=== PATIENT | female | born 1975 | race Caucasian/White ===

== ENCOUNTER 2017-04-15 20:20 | Emergency (ER) | payer MEDICAID ==
[2017-04-15 20:25] VITALS: TEMP 98.6; O2SAT 96
[2017-04-15] MEDS ORDERED: PROMETHAZINE HCL 25 MG/ML INJ IVP ONE (20:59)
[2017-04-15] MEDS ORDERED: NS 1,000 ML IV ONE (20:59)
[2017-04-15] MEDS ORDERED: FAMOTIDINE 20 MG/NACL 50 ML IV ONE (20:59)
--- NOTE | 2017-04-15 20:59 | EDPHY ---
H & P Stated Complaint: RIGHT UPPER ABD PAIN PAST 3 DAYS , HX OF GALLBLADDER Time Seen by Provider: 04/15/17 20:58 HPI/ROS: HPI: This is a 42 female who presents with Chief Complaint: RIGHT UPPER ABD PAIN PAST 3 DAYS , HX OF GALLBLADDER Location: Right upper quadrant Quality: Pain Duration: 2 weeks Signs and Symptoms: no fever, + nausea, no vomiting, no hematemesis, no blood in stool, no abdominal bloating, no diarrhea, no back pain, no urinary symptoms , no vaginal bleeding/discharge, no indigestion, no chest pain, no shortness of breath Timing: Sudden, intermittent episodes Severity: [id number] Context: Patient is generally healthy presents with complaints of right upper quadrant pain over the last 2 weeks that have occurred twice today lasting approximate 30 min at a time and self resolves when she sits and rests and breathes deeply. Patient reports that she ate some fresh bread prior to the symptoms starting. Denies the pain being related to breathing patterns/ positions. Patient does have a IUD and smokes cigarettes intermittently. Denies recent long distance travel/left extremity swelling. Patient denies fever /cough/chest pain/shortness of breath. She denies any food intolerance to spicy or fried foods. Has bowel movement every day. Able to eat and drink normally. LMP was 2-3 weeks ago. History of appendectomy Modifying Factors: None Comment: ROS: see HPI Constitutional: No fever, no chills, no weight loss Eyes: No blurred vision Respiratory: No shortness of breath, no cough Cardiovascular: No chest pain, no palpitations Gastrointestinal: No nausea, no vomiting, no diarrhea, no hematemesis, no blood in stool Genitourinary: No dysuria, no blood in urine Extremities: No myalgias, no edema Neurologic: No weakness, no numbness Skin: No rashes, no petechiae Hematologic: No bruising, no bleeding MEDICAL/SURGICAL/SOCIAL HISTORY: Medical history: Generally healthy. Does not take any regular medications. Surgical history: Tonsillectomy Social history: . CONSTITUTIONAL: Extremely well-appearing adult white female, awake and alert, no obvious distress HEENT: Atraumatic and normocephalic, PERRL, EOMI. Tympanic membranes clear. Oropharynx clear, no exudate and moist pink mucosa. Airway patent. No lymphadenopathy. No meningismus. Cardiovascular: Normal S1/S2, regular rate, regular rhythm, without murmur rub or gallop. PULMONARY/CHEST: Symmetrical and nontender. Clear to auscultation bilaterally. Good air movement. No accessory muscle usage. ABDOMEN: Soft, nondistended, RUQ moderate tenderness no rebound, no guarding, no peritoneal signs, no masses or organomegaly. No CVAT. EXTREMITIES: 2/2 pulses, strength 5/5, no deformities, no clubbing, no cyanosis or edema. NEUROLOGICAL: no focal neuro deficits. GCS 15. SKIN: Warm and dry, no erythema. no rash. Good capillary refill. Source: Patient Exam Limitations: No limitations - Personal History LMP (Females 10-55): 22-28 Days Ago Current Tetanus/Diphtheria Vaccine: Yes Current Tetanus Diphtheria and Acellular Pertussis (TDAP): Yes - Medical/Surgical History Hx Asthma: No Hx Chronic Respiratory Disease: No Hx Diabetes: No Hx Cardiac Disease: No Hx Renal Disease: No Hx Cirrhosis: No Hx Alcoholism: No Hx HIV/AIDS: No Hx Splenectomy or Spleen Trauma: No Other PMH: GALLBLADDER - Social History Smoking Status: Light smoker Constitutional: Initial Vital Signs Temperature (C) 37.0 C 04/15/17 20:22 Heart Rate 80 04/15/17 20:22 Respiratory Rate 18 04/15/17 20:22 Blood Pressure 136/73 H 04/15/17 20:22 O2 Sat (%) 96 04/15/17 20:22 O2 Delivery Mode Room Air Allergies/Adverse Reactions: No Known Allergies Allergy (Unverified 04/15/17 20:25) Home Medications: Medication Instructions Recorded Polyethylene Glycol 3350 [Miralax 17 gm PO DAILY #10 pkt 04/15/17 17 gm (*)] Medical Decision Making - Diagnostics Imaging Results: Imaging Impressions Abdomen Ultrasound 04/15/17 20:59 Impression: Mildly contracted gallbladder. Otherwise normal right upper quadrant ultrasound. Results called and discussed with Christi Vieira at 04/15/2017 2155 hours. Abdomen X-Ray 04/15/17 21:10 Impression: Nonobstructive bowel gas pattern. ED Course/Re-evaluation: Labs, KUB, right upper quadrant ultrasound, urinalysis, IV fluids, IV medications ordered Given 1 liter, IV Pepcid, IV promethazine with adequate relief 2155: Called by Radiology who advised ultrasound shows no gallbladder abnormality. KUB shows moderate stool burden Called by radiologist who advised CT abdomen and pelvis scan shows no signs of cholecystitis, pancreatitis, obstruction, colitis, diverticulitis mesenteric ischemia, peritonitis, pyelonephritis. Patient is clearly having gas pains related to constipation. Advised MiraLax push fluids increase fiber This patient was seen under the supervision of my secondary supervising physician. I evaluated care for this patient independently. Discussed this patient with Dr. Boyer who did not see the patient. Patient's presentation, labs/imaging, treatment and plan of care were discussed with secondary supervising physician. Differential Diagnosis: Abdominal pain including but not limited to appendicitis, cholecystitis, gastritis and urinary tract infection. - Data Points Laboratory Results: Laboratory Results 04/15/17 21:43 04/15/17 21:43 04/15/17 04/15/17 04/15/17 22:47 21:43 21:43 WBC RBC Hgb Hct MCV MCH MCHC RDW Plt Count MPV Neut % (Auto) Lymph % (Auto) Nance % (Auto) Eos % (Auto) Baso % (Auto) Nucleat RBC Rel Count Absolute Neuts (auto) Absolute Lymphs (auto) Absolute Monos (auto) Absolute Eos (auto) Absolute Basos (auto) Absolute Nucleated RBC Immature Gran % Immature Gran # D-Dimer < 0.27 ug/mLFEU ug/mLFEU (0.00-0.50) Sodium Potassium Chloride Carbon Dioxide Anion Gap BUN Creatinine Estimated GFR Glucose Calcium Total Bilirubin Conjugated Bilirubin Unconjugated Bilirubin AST ALT Alkaline Phosphatase Total Protein Albumin Lipase Beta HCG, Qual NEGATIVE Urine Color YELLOW Urine Appearance HAZY Urine pH 6.0 (5.0-7.5) Ur Specific [place] 1.009 (1.002-1.030) Urine Protein NEGATIVE (NEGATIVE) Urine Ketones NEGATIVE (NEGATIVE) Urine Blood 3+ H (NEGATIVE) Urine Nitrate NEGATIVE (NEGATIVE) Urine Bilirubin NEGATIVE (NEGATIVE) Urine Urobilinogen NEGATIVE EU EU (0.2-1.0) Ur Leukocyte Esterase NEGATIVE (NEGATIVE) Urine RBC 15-25 /hpf H /hpf (0-3) Urine WBC 1-3 /hpf /hpf (0-3) Ur Epithelial Cells TRACE /lpf /lpf (NONE-1+) Urine Bacteria TRACE /hpf H /hpf (NONE SEEN) Urine Mucus TRACE /lpf /lpf (NONE-1+) Urine Glucose NEGATIVE (NEGATIVE) 04/15/17 04/15/17 21:43 21:43 WBC 15.94 10^3/uL H 10^3/uL (3.80-9.50) RBC 3.61 10^6/uL L 10^6/uL (4.18-5.33) Hgb 12.5 g/dL L g/dL (12.6-16.3) Hct 34.8 % L % (38.0-47.0) MCV 96.4 fL fL (81.5-99.8) MCH 34.6 pg H pg (27.9-34.1) MCHC 35.9 g/dL g/dL (32.4-36.7) RDW 11.9 % % (11.5-15.2) Plt Count 272 10^3/uL 10^3/uL (150-400) MPV 9.2 fL fL (8.7-11.7) Neut % (Auto) 73.2 % % (39.3-74.2) Lymph % (Auto) 17.3 % % (15.0-45.0) Nance % (Auto) 7.0 % % (4.5-13.0) Eos % (Auto) 1.6 % % (0.6-7.6) Baso % (Auto) 0.5 % % (0.3-1.7) Nucleat RBC Rel Count 0.0 % % (0.0-0.2) Absolute Neuts (auto) 11.66 10^3/uL H 10^3/uL (1.70-6.50) Absolute Lymphs (auto) 2.76 10^3/uL 10^3/uL (1.00-3.00) Absolute Monos (auto) 1.12 10^3/uL H 10^3/uL (0.30-0.80) Absolute Eos (auto) 0.26 10^3/uL 10^3/uL (0.03-0.40) Absolute Basos (auto) 0.08 10^3/uL 10^3/uL (0.02-0.10) Absolute Nucleated RBC 0.00 10^3/uL 10^3/uL (0-0.01) Immature Gran % 0.4 % % (0.0-1.1) Immature Gran # 0.06 10^3/uL 10^3/uL (0.00-0.10) D-Dimer Sodium 141 mEq/L mEq/L (135-145) Potassium 3.6 mEq/L mEq/L (3.5-5.2) Chloride 110 mEq/L mEq/L (97-110) Carbon Dioxide 21 mEq/l L mEq/l (22-31) Anion Gap 10 mEq/L mEq/L (8-16) BUN 15 mg/dL mg/dL (7-23) Creatinine 0.8 mg/dL mg/dL (0.6-1.0) Estimated GFR > 60 Glucose 93 mg/dL mg/dL (70-100) Calcium 8.9 mg/dL mg/dL (8.5-10.4) Total Bilirubin 0.1 mg/dL mg/dL (0.1-1.4) Conjugated Bilirubin 0.1 mg/dL mg/dL (0.0-0.5) Unconjugated Bilirubin 0.0 mg/dL mg/dL (0.0-1.1) AST 21 IU/L IU/L (14-46) ALT 25 IU/L IU/L (9-52) Alkaline Phosphatase 47 IU/L IU/L (38-126) Total Protein 6.4 g/dL g/dL (6.3-8.2) Albumin 4.2 g/dL g/dL (3.5-5.0) Lipase 71 IU/L IU/L (23-300) Beta HCG, Qual Urine Color Urine Appearance Urine pH Ur Specific [place] Urine Protein Urine Ketones Urine Blood Urine Nitrate Urine Bilirubin Urine Urobilinogen Ur Leukocyte Esterase Urine RBC Urine WBC Ur Epithelial Cells Urine Bacteria Urine Mucus Urine Glucose Medications Given: Discontinued Medications Sodium Chloride (Ns) 1,000 mls @ 0 mls/hr IV EDNOW ONE; Wide Open PRN Reason: Protocol Stop: 04/15/17 21:00 Last Admin: 04/15/17 21:48 Dose: 1,000 mls Famotidine/Sodium Chloride (Pepcid 20 Mg (Premix)) 50 mls @ 200 mls/hr IV EDNOW ONE Stop: 04/15/17 21:13 Last Admin: 04/15/17 21:49 Dose: 50 mls Morphine Sulfate (Morphine) 4 mg IVP EDNOW ONE Stop: 04/15/17 22:49 Last Admin: 04/15/17 22:53 Dose: 4 mg Promethazine HCl (Phenergan) 12.5 mg IVP EDNOW ONE Stop: 04/15/17 21:00 Last Admin: 04/15/17 21:49 Dose: 12.5 mg Departure - Departure Disposition: Home, Routine, Self-Care Clinical Impression: Abdominal pain Qualifiers: Abdominal location: right upper quadrant Qualified Code(s): R10.11 - Right upper quadrant pain Constipation Qualifiers: Constipation type: unspecified constipation type Qualified Code(s): K59.00 - Constipation, unspecified Condition: Good Instructions: Constipation (ED), Acute Abdominal Pain (ED), Gas and Bloating ( ED) Additional Instructions: Consume a minimum of 8-10 glasses of water or electrolyte fluid replacement drinks that include Gatorade, Powerade, Pedialyte. Eat a bland diet for the next 48 hours and then slowly advance as tolerated. Take MiraLax daily x 3 days and then as needed for constipation. Return to the Emergency Room if symptoms do not resolve in the next 48-72 hours , you spike a fever > 102 F, or experience intractable abdominal pain/nausea/ vomiting. Please establish care with a primary care provider and follow-up within the next 1-[address] scan today shows no acute abdominal abnormality. It does show moderate stool burden consistent with moderate constipation. Referrals: [facility],. [Clinic] - As per Instructions Prescriptions: Polyethylene Glycol 3350 [Miralax 17 gm (*)] 17 gm PO DAILY #10 pkt
[2017-04-15 21:51] LABS: PLATELET COUNT 272 10^3/uL (150-400)
[2017-04-15] MEDS ORDERED: ONDANSETRON 4 MG/2 ML VIAL ONE (22:51)
[2017-04-15] MEDS ORDERED: IOPAMIDOL (ISOVUE-300) 100 ML BTL ONE (22:57)
[2017-04-16 00:07] VITALS: BP 98/55; PULSE 78; RESP 16
== END 2017-04-15 23:45 | disposition home or self-care (01) ==
DX: R10.11 Right upper quadrant pain (principal); K59.00 Constipation, unspecified; F17.210 Nicotine dependence, cigarettes, uncomplicated; E86.9 Volume depletion, unspecified
CPT/HCPCS: 96374; J2405; J2550; Q9967